=== PATIENT | male | born 1995 | race Caucasian/White ===

== ENCOUNTER 2021-06-23 15:01 | Emergency (ER) | payer OTHER, SELFPAY ==
--- NOTE | ~2021-06-23 | XR_ITS ---
EXAMINATION: XR KNEE, RIGHT CLINICAL INFORMATION: Trauma, pain COMPARISON: None TECHNIQUE: Four views of the right knee. FINDINGS: There is no fracture or dislocation. No joint narrowing or erosive change or chondrocalcinosis. Suspect small to moderate suprapatellar effusion. XR/XR knee RT 4V IMPRESSION: Suspect small to moderate suprapatellar effusion. No bony abnormality.
[2021-06-23 15:15] VITALS: BP 141/73; PULSE 72; RESP 16; TEMP 36.6; O2SAT 100; BMI 41.5
--- NOTE | 2021-06-23 15:45 | ED_ITS ---
HPI - General Adult General Chief complaint: Extremity Injury, Lower Stated complaint: Knee inj- work inj Time Seen by Provider: 06/23/21 15:45 Source: patient Limitations: language barrier History of Present Illness HPI narrative: Patient presents with right-sided knee pain. Patient states a few weeks prior while at work moving a [employer] fell onto his right knee. And felt a twist of the knee at that time. Pain has increased over the past few weeks. Patient states he filled out his workman's comp paperwork today but was not originally softening injury. Pain increases when going up or down stairs. The pain is located right below the patella of the right knee. Pain 6/10 some relief with [id number] meds at home. Patient denies any other complaints at this time patient is fully vaccinated for COVID-19. Pain is aching in nature Related Data Previous Rx's Medication Instructions Recorded naproxen 500 mg tablet (Naprosyn) 500 mg PO BID PRN #30 tab 06/23/21 Allergies Allergy/AdvReac Type Severity Reaction Status Date / Time No Known Allergies Allergy Verified 06/23/21 15:17 Review of Systems Constitutional: Constitutional: Denies chills and Denies fever(s) ENT: Denies sore throat Cardiovascular: Cardiovascular: Denies chest pain and Denies dyspnea Respiratory: Respiratory: Denies cough and Denies dyspnea Gastrointestinal: Gastrointestinal: Denies nausea and Denies vomiting Musculoskeletal: Musculoskeletal: Reports joint swelling and Denies numbness Comments: Right knee pain Neurologic: Denies numbness and Denies paresthesias Hematologic/Lymphatic: Hematologic/Lymphatic: Denies easy bleeding and Denies easy bruising Allergic/Immunologic: Allergic/Immunologic: Denies urticaria PMFSH Past Medical History Attestation statement: The following information was validated with the patient. Social History Social History Advance Directives: No Advance Directives Information Provided: No Physical Exam Vital Signs: Vital Signs: Last Vital Signs Temp 98 F 06/23/21 15:15 Pulse 72 06/23/21 15:15 Resp 16 06/23/21 15:15 BP 141/73 H 06/23/21 15:15 Pulse Ox 100 06/23/21 15:15 Body Mass Index 41.5 vital signs have been reviewed as normal and appeared to be correct. Blood pressure normal. Heart rate normal. Respiration rate normal. Temperature normal. Oxygen saturation normal. Appearance: Alert. Oriented X3. No acute distress. Head: Normal external exam. Normocephalic. Atraumatic. Eyes: PERRLA. EOMI. Conjunctiva and sclera normal. ENT: Pharynx normal. Uvula midline. Moist mucous membranes. CVS: Heart regular rate and rhythm no murmurs and rubs Respiratory: Breath sounds are clear to auscultation bilaterally. No accessory muscle use noted. Back: Full range of motion noted Skin: Skin warm and dry. Normal skin color. Normal skin turgor. No rashes/lesions/lacerations noted. Extremities: Right knee prepatellar tenderness ? effusion noted positive joint line tenderness lateral greater than medial no obvious laxity on drawer test full range of motion Neuro: Oriented X 3. No motor deficit. No sensory deficit. Reflexes normal. Course Course Course Narrative: Right knee patella tendinitis Right knee sprain Right knee strain Right knee meniscal injury Right knee ligament injury X-ray pending right knee no obvious laxity on drawer test cannot rule out meniscal injury and/or patella tendinitis. X-ray reviewed with patient patient instructed to follow-up with orthopedics and/or workman's comp. Splint rest elevation Medical Decision Making Imaging Data knee: Radiologist's impression: [place] [id number] XRay Report Signed Patient: Abdi Anderson MR#: [id number] : 1995 Acct:[id number] Age/Sex: 25 / M ADM Date: 06/23/21 Loc: HO.ED Attending Dr: Ordering Physician: Steven Hernandez MD Date of Service: 06/23/21 Procedure(s): XR knee RT 4V Accession Number(s): [id number] cc: Steven Hernandez MD~ EXAMINATION: XR KNEE, RIGHT? CLINICAL INFORMATION: Trauma, pain? COMPARISON: None? TECHNIQUE: Four views of the right knee. FINDINGS: There is no fracture or dislocation. No joint narrowing or erosive change or chondrocalcinosis. Suspect small to moderate suprapatellar effusion.? XR/XR knee RT 4V IMPRESSION: Suspect small to moderate suprapatellar effusion. No bony abnormality. ? Dictated By: Morales Alberto MD Signed By: <Electronically signed by Morales Alberto MD in [place]> 06/23/21 1545 DD/ 1534 TD/TT:? Firer Low Pressure: RM Discharge Plan Discharge Clinical Impression: Knee pain, right Patient Disposition: Home, Self-Care Instructions: Knee Pain (ED) Additional Instructions: X-ray shows no obvious bony injury but does show a small effusion or swelling of the knee. Cannot rule out underlying meniscal injury or ligament injury follow-up with orthopedics as recommended Ice rest elevation Prescriptions: New naproxen [Naprosyn] 500 mg tablet 500 mg PO BID PRN (Reason: pain) Qty: 30 RF: 0 Referrals: Jhoan Guzman MD [Physician] - 2 days Stand Alone Forms: Work/School Release
== END 2021-06-23 16:16 | disposition home or self-care (01) ==
LOC: HO.ED 15:57
PROVIDERS: Emergency Provider Emergency Medicine Emergency Medical Services
DX: M25.561 Pain in right knee (principal); Z79.899 Other long term (current) drug therapy
CPT/HCPCS: 73564; 99283

== ENCOUNTER → 2021-07-19 08:52 | Outpatient (BNVA) | payer OTHER, SELFPAY | PROVIDERS: Visit Provider Physician Assistant | DX: S83.91XA Sprain of unspecified site of right knee, initial encounter (principal) | CPT/HCPCS: 99202 ==

== ENCOUNTER → 2021-09-06 12:49 | Outpatient (BNVA) | payer OTHER, SELFPAY | PROVIDERS: Visit Provider Physician Assistant | DX: S83.91XD Sprain of unspecified site of right knee, subsequent encounter (principal) | CPT/HCPCS: 99212 ==